=== PATIENT | female | born 1980 | race Caucasian/White ===

== ENCOUNTER 2023-05-26 10:08 | Day surgery (SDC) | payer BC ==
[2023-05-22 11:38] VITALS: BMI 23.1
[2023-05-26] MEDS ORDERED: Midazolam HCl 2 mg/2 ml Vial ONE (11:39)
[2023-05-26] MEDS ORDERED: Lidocaine 1% PF 5 ML VIAL ONE (12:15)
[2023-05-26] MEDS ORDERED: PROPOFOL 200 MG/20 ML VIAL ONE (12:15)
[2023-05-26] MEDS ORDERED: HYDROcodone/Acetaminophen 5/325 mg Tablet ONE (13:41)
== END 2023-05-26 14:06 | disposition home or self-care (01) ==
LOC: MRI 10:08
PROVIDERS: ATTEND Family Medicine Sports Medicine
DX: M54.16 Radiculopathy, lumbar region (principal); Z88.1 Allergy status to other antibiotic agents; Z88.2 Allergy status to sulfonamides
CPT/HCPCS: 72148; J2250; J2704